=== PATIENT | male | born 1970 | race Caucasian/White ===

== ENCOUNTER 2017-06-30 17:14 | Emergency (ER) | payer OTHER ==
[2017-06-30 17:45] VITALS: BP 135/71; PULSE 77; O2SAT 96
[2017-06-30] MEDS ORDERED: Adacel Vial IM ONE (18:26)
--- NOTE | 2017-06-30 18:32 | ERPHSYRPT ---
- History of Present Illness Time Seen by Provider: 06/30/17 17:58 Source: patient Patient Subjective Stated Complaint: rash to genitals Triage Nursing Assessment: to er c/o rash/burn to genital area. pt states only this he has been exposed to is a new tanning bed pt states area is peeling and sore to touch. 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 He went to a tanning parlor Thursday (4 days ago) and used tanning oil from [employer] and then tanned. 2 hours later he had rash on scrotum. The rash is worse, painful. Last intercourse was 2 months ago. No vesicles. No urethral discharge. Normal urination. No other rash except on the scrotum and dry skin on the penis. No hx of this in the past. No fever or chills. Not diabetic. Timing/Duration: day(s) (4) Quality: painful Severity: severe Allergies/Adverse Reactions: No Known Drug Allergies Allergy (Unverified 06/30/17 17:40) Hx Tetanus, Diphtheria Vaccination/Date Given: No Hx Influenza Vaccination/Date Given: Yes - Review of Systems Constitutional: No Fever, No Chills Ears, Nose, & Throat: No Throat Pain Respiratory: No Cough, No Dyspnea Cardiac: No Chest Pain Abdominal/Gastrointestinal: No Abdominal Pain, No Nausea, No Vomiting Genitourinary Symptoms: Other (scrotal rash and pain), No Dysuria, No Hematuria , No Penile Discharge Musculoskeletal: No Back Pain Skin: Rash Neurological: No Headache All Other Systems: Reviewed and Negative - Past Medical History Pertinent Past Medical History: Yes Other Medical History: bone spur to right neck - Past Surgical History Past Surgical History: Yes Other Surgical History: neck with bone graft - Social History Smoking Status: Current every day smoker Drug Use: none Patient Lives Alone: Yes (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) - Nursing Vital Signs Nursing Vital Signs: Initial Vital Signs Temperature 98.2 F 06/30/17 17:15 Pulse Rate 77 06/30/17 17:15 Respiratory Rate 18 06/30/17 17:15 Blood Pressure 135/71 06/30/17 17:15 O2 Sat by Pulse Oximetry 96 06/30/17 17:15 Pain Scale Pain Intensity 8 - Physical Exam General Appearance: alert Eye Exam: PERRL/EOMI Ears, Nose, Throat Exam: normal ENT inspection, moist mucous membranes, No pharyngeal erythema, No tonsillar exudate Neck Exam: normal inspection, non-tender, supple Respiratory Exam: normal breath sounds Cardiovascular Exam: regular rate/rhythm Gastrointestinal/Abdomen Exam: soft, No tenderness, No distention Male Genitalia Exam: other (circumcised penis, dry wrinkled penile skin without rash or erythema, no penile discharge. The testicles are normal sized and nontender. The scrotal skin is erythematous with some clear discharge from the skin consistent with burn or irritant dermatitis. No crepitus. The erythema does not spread to legs or perineal or suprapubic area. There is no other rash on the body.) Back Exam: normal inspection, normal range of motion Extremity Exam: normal inspection, normal range of motion Neurologic Exam: alert, oriented x 3, cooperative, sensation nml, No motor deficits Skin Exam: warm, dry SpO2 Interpretation: normal SpO2: 96 Oxygen Delivery: Room Air - Course Nursing assessment & vital signs reviewed: Yes Ordered Tests: Medication Summary Generic Name Dose Route Start Last Admin Trade Name Freq PRN Reason Stop Dose Admin Diphtheria/Tetanus/Acell Pertussis 0.5 ml 06/30/17 18:26 Adacel Vial IM 06/30/17 18:27 .ONCE ONE - Progress Progress Note: 06/30/17 18:34 No systemic symptoms. Symptom treatment with aveeno oatmeal compresses, Tdap, Keflex, norco. Inst given. Counseled pt/family regarding: diagnosis, need for follow-up - Departure Time of Disposition: 18:35 Departure Disposition: Home Clinical Impression: Sunburn due to tanning bed Cellulitis Qualifiers: Site of cellulitis: other site Qualified Code(s): L03.818 - Cellulitis of other sites Condition: Stable Critical Care Time: No Referrals: DOCTOR,NO FAMILY [NON-STAFF PHY W/O PRIVILEGES] - Instructions: Sunburn (DC), Cellulitis (Skin Infection), Adult (DC) Additional Instructions: Genitalia open to air Aveeno oatmeal compresses off and on Rx keflex. Rx norco for pain Return for worsening, fever, or concerns. Avoid tanning beds. Prescriptions: Hydrocodone/APAP 10/325 mg [[place] 10/325 MG Tablet] 1 tab PO Q6H PRN PRN # 20 tablet MDD 4 PRN Reason: Pain Cephalexin Mh 500 mg [Keflex 500 mg] 1 cap PO QID #40 capsule
== END 2017-06-30 19:09 | disposition home or self-care (01) ==
LOC: ED 17:14
DX: L56.8 Other specified acute skin changes due to ultraviolet radiation (principal); W89.1XXA Exposure to tanning bed, initial encounter; L03.818 Cellulitis of other sites; R21 Rash and other nonspecific skin eruption; N50.82 Scrotal pain; F17.200 Nicotine dependence, unspecified, uncomplicated
CPT/HCPCS: 90471; 90715; 99282